=== PATIENT | female | born 1980 | race Caucasian/White ===

== ENCOUNTER 2018-09-06 20:15 | Emergency (ER) | payer OTHER ==
[~2018-09-06] VITALS: Ht 167.6 cm; Wt 117.9 kg
[2018-09-06] MEDS ORDERED: PRILOSEC OTC20 MG (20:24)
[2018-09-06] MEDS ORDERED: XARELTO20 MG (20:24)
[2018-09-06 21:09] LABS: ABSOLUTE BASOPHILS 0.1 thou/uL (0.0-0.2); ABSOLUTE LYMPHOCYTES 3.8 thou/uL (0.8-5.3); ABSOLUTE MONOCYTES 0.8 thou/uL (0.0-1.2); ABSOLUTE NEUTROPHILS 11.1 thou/uL (1.6-8.1); BASOPHILS 0.7 %; EOSINOPHILS 0.2 %; HEMATOCRIT 42.3 % (37.0-47.0); HEMOGLOBIN 13.9 gm/dL (12.0-15.0); LYMPHOCYTES 23.9 %; MCH 29.4 pg (26.0-34.0); MCHC 32.8 g/dL (28.0-37.0); MCV 89.7 fL (80.0-100.0); MPV 8.5 fl. (7.2-11.1); NUCLEATED RBCS 0 /100WBC; PLATELET COUNT* 342 thou/uL (150-400); POLYS 70.2 %; RBC 4.72 mil/uL (4.20-5.00); RDW-CV 14.5 % (10.5-14.5); WBC 15.8 thou/uL (4.0-11.0)
[2018-09-06 21:25] LABS: ANION GAP 6 mmol/L (7-16); BUN 12 mg/dL (7-18); CHLORIDE 100 mmol/L (98-107); CO2 32 mmol/L (21-32); CREATININE 0.9 mg/dL (0.6-1.3); GLUCOSE 132 mg/dL (70-99); POTASSIUM 3.4 mmol/L (3.5-5.1); SODIUM 138 mmol/L (136-145)
[2018-09-06 21:27] LABS: APTT 26.5 Seconds (25.0-31.3); PROTIME 10.2 Seconds (9.20-11.50)
[2018-09-06 21:36] LABS: ALBUMIN 3.8 g/dL (3.4-5.0); ALKALINE PHOSPHATASE 104 U/L (46-116); LIPASE 178 U/L (73-393); SGOT 9 U/L (15-37); SGPT 21 U/L (30-65); TOTAL BILIRUBIN 0.3 mg/dL (<0.1-1.0); TOTAL PROTEIN 8.2 g/dL (6.4-8.2); TROPONIN-I LEVEL <0.06 ng/mL (<0.06)
[2018-09-06 23:09] VITALS: BP 113/68
--- NOTE | 2018-09-07 14:31 | EKG ---
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 [place]: [place] : 1980 Requested By: Leandra Zheng Order Number: [id number] MD: Melvin Landis Measurements Intervals [place] Rate: 101 P: 42 [place]: 135 QRS: 25 QRSD: 103 T: -1 QT: 347 QTc: 450 Interpretive Statements Sinus tachycardia Borderline T abnormalities, inferior leads Baseline wander in lead(s) II,III,aVF No previous ECG available for comparison Electronically Signed On 09-07-2018 14:31:21 AIR TURNING MACHINE FEEDER by Melvin Landis [email or web address] <ELECTRONICALLY SIGNED> By: Melvin Landis MD, [facility] 09/07/18 1431 19 19 Melvin Landis MD, FACC /EPI
== END 2018-09-06 23:10 | disposition home or self-care (01) ==
LOC: M.ERS 20:15
PROVIDERS: Personal Emergency Response Attendant
DX: R07.89 Other chest pain (principal); Z88.8 Allergy status to other drugs, medicaments and biological substances; Z86.711 Personal history of pulmonary embolism

== ENCOUNTER 2019-10-22 00:03 | Emergency (ER) | payer OTHER ==
[~2019-10-22] VITALS: Ht 170.2 cm; Wt 113.4 kg
[~2019-10-22 00:03] MED LIST: PRILOSEC OTC20 MG; XARELTO20 MG
[2019-10-22] MEDS ORDERED: METFORMIN HCL500 M3 PO (00:17)
[2019-10-22 01:00] LABS: ABSOLUTE BASOPHILS 0.1 thou/uL (0.0-0.2); ABSOLUTE EOSINOPHILS 0.1 thou/uL (0.0-0.7); ABSOLUTE MONOCYTES 0.6 thou/uL (0.0-1.2); ABSOLUTE NEUTROPHILS 4.3 thou/uL (1.6-8.1); BASOPHILS 0.7 %; EOSINOPHILS 1.7 %; HEMATOCRIT 40.6 % (37.0-47.0); HEMOGLOBIN 13.7 gm/dL (12.0-15.0); LYMPHOCYTES 37.2 %; MCH 29.7 pg (26.0-34.0); MCHC 33.7 g/dL (28.0-37.0); MCV 88.2 fL (80.0-100.0); MONOCYTES 7.2 %; MPV 8.1 fl. (7.2-11.1); NUCLEATED RBCS 0 /100WBC; PLATELET COUNT* 298 thou/uL (150-400); POLYS 53.2 %; RDW-CV 14.1 % (10.5-14.5); WBC 8.1 thou/uL (4.0-11.0)
[2019-10-22 01:07] LABS: CALCIUM 9.7 mg/dL (8.5-10.1); CREATININE 0.9 mg/dL (0.6-1.3); INR 1.3; POTASSIUM 3.6 mmol/L (3.5-5.1)
[2019-10-22 01:12] LABS: ALBUMIN 3.8 g/dL (3.4-5.0); TOTAL BILIRUBIN 0.6 mg/dL (<0.1-1.0)
[2019-10-22] MEDS ORDERED: PROAIR HFA8.5 GM INH (02:46)
[2019-10-22 03:00] VITALS: BP 144/81
--- NOTE | 2019-10-22 12:58 | EKG ---
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 Associate: [place] : 1980 Requested By: Jordyn Angela Order Number: [id number] MD: Joselito Payton Measurements Intervals [place] Rate: 93 P: 30 [place]: 151 QRS: 36 QRSD: 102 T: 22 QT: 371 QTc: 462 Interpretive Statements Sinus rhythm Compared to ECG 09/06/2018 20:20:52 Sinus tachycardia no longer present T-wave abnormality no longer present Electronically Signed On 10-22-2019 12:58:21 SHEAR TENDER by Joselito Payton [email or web address] <ELECTRONICALLY SIGNED> By: Yun Payton MD, [facility] 10/22/19 1258 Yun Payton MD, [facility] /EPI
== END 2019-10-22 03:00 | disposition home or self-care (01) ==
LOC: M.ERS 00:03
PROVIDERS: Emergency Medicine
DX: R07.89 Other chest pain (principal); Z88.8 Allergy status to other drugs, medicaments and biological substances; Z98.890 Other specified postprocedural states

== ENCOUNTER 2020-06-30 22:03 | Emergency (ER) | payer OTHER ==
[~2020-06-30] VITALS: Ht 170.2 cm; Wt 111.1 kg
[~2020-06-30 22:03] MED LIST changes: +METFORMIN HCL500 M3 PO; +PROAIR HFA8.5 GM INH
[2020-06-30] MEDS ORDERED: PROTONIX40 M4 PO (22:12)
[2020-06-30] MEDS ORDERED: PROTONIX40 M2 PO (22:12)
[2020-06-30 22:57] LABS: ABSOLUTE BASOPHILS 0.1 thou/uL (0.0-0.2); ABSOLUTE EOSINOPHILS 0.2 thou/uL (0.0-0.7); ABSOLUTE LYMPHOCYTES 2.8 thou/uL (0.8-5.3); ABSOLUTE MONOCYTES 0.7 thou/uL (0.0-1.2); ABSOLUTE NEUTROPHILS 5.9 thou/uL (1.6-8.1); BASOPHILS 0.6 %; EOSINOPHILS 1.6 %; HEMATOCRIT 41.2 % (37.0-47.0); HEMOGLOBIN 14.1 gm/dL (12.0-15.0); LYMPHOCYTES 29.3 %; MCH 30.3 pg (26.0-34.0); MCHC 34.2 g/dL (28.0-37.0); MCV 88.7 fL (80.0-100.0); MONOCYTES 6.9 %; MPV 8.7 fl. (7.2-11.1); NUCLEATED RBCS 0 /100WBC; PLATELET COUNT* 309 thou/uL (150-400); POLYS 61.6 %; RBC 4.64 mil/uL (4.20-5.00); RDW-CV 13.7 % (10.5-14.5); WBC 9.7 thou/uL (4.0-11.0)
[2020-06-30 23:01] LABS: CALCIUM 8.1 mg/dL (8.5-10.1); POTASSIUM 3.4 mmol/L (3.5-5.1)
[2020-06-30 23:05] LABS: ALBUMIN 3.8 g/dL (3.4-5.0); TOTAL BILIRUBIN 0.5 mg/dL (<0.1-1.0); TOTAL PROTEIN 7.9 g/dL (6.4-8.2)
[2020-06-30 23:09] LABS: INR 1.2; PROTIME 12.7 Seconds (9.20-11.50)
[2020-07-01] MEDS ORDERED: CARAFATE 1 GM TA1 GM PO (02:41)
[2020-07-01 03:03] VITALS: BP 120/79
--- NOTE | 2020-07-01 14:01 | EKG ---
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 Analytics: [place] : 1980 Requested By: Leandra Zheng Order Number: [id number] MD: Melvin Landis Measurements Intervals [place] Rate: 124 P: 190 [place]: 156 QRS: 53 QRSD: 95 T: -40 QT: 297 QTc: 427 Interpretive Statements Sinus tachycardia probable left atrial enlargement Delayed R wave progression borderline repolarization abnormality Compared to ECG 10/22/2019 00:13:32 Sinus rhythm no longer present Electronically Signed On 07-01-2020 14:01:17 CDT by Melvin Landis [email or web address] <ELECTRONICALLY SIGNED> By: Melvin Landis MD, FACC 07/01/20 1401 06 06 Melvin Landis MD, FAC /EPI
== END 2020-07-01 03:05 | disposition home or self-care (01) ==
LOC: M.ERS 22:03
PROVIDERS: Personal Emergency Response Attendant
DX: K21.9 Gastro-esophageal reflux disease without esophagitis (principal); R07.89 Other chest pain; Z86.711 Personal history of pulmonary embolism; Z90.49 Acquired absence of other specified parts of digestive tract; Z88.8 Allergy status to other drugs, medicaments and biological substances

== ENCOUNTER 2020-09-30 18:08 | Emergency (ER) | payer OTHER ==
[~2020-09-30] VITALS: Ht 170.2 cm; Wt 112.0 kg
[~2020-09-30 18:08] MED LIST changes: +CARAFATE 1 GM TA1 GM PO; +PROTONIX40 M2 PO; +PROTONIX40 M4 PO
[2020-09-30 18:32] LABS: ABSOLUTE BASOPHILS 0.1 thou/uL (0.0-0.2); ABSOLUTE EOSINOPHILS 0.1 thou/uL (0.0-0.7); ABSOLUTE LYMPHOCYTES 2.2 thou/uL (0.8-5.3); ABSOLUTE MONOCYTES 0.5 thou/uL (0.0-1.2); ABSOLUTE NEUTROPHILS 6.1 thou/uL (1.6-8.1); BASOPHILS 1.1 %; EOSINOPHILS 0.8 %; HEMATOCRIT 42.1 % (37.0-47.0); HEMOGLOBIN 14.2 gm/dL (12.0-15.0); LYMPHOCYTES 24.1 %; MCH 29.6 pg (26.0-34.0); MCHC 33.7 g/dL (28.0-37.0); MPV 7.6 fl. (7.2-11.1); NUCLEATED RBCS 0 /100WBC; PLATELET COUNT* 331 thou/uL (150-400); RBC 4.79 mil/uL (4.20-5.00); RDW-CV 13.8 % (10.5-14.5)
[2020-09-30 18:39] LABS: CALCIUM 8.6 mg/dL (8.5-10.1); CREATININE 0.9 mg/dL (0.6-1.3); POTASSIUM 3.4 mmol/L (3.5-5.1)
[2020-09-30 18:43] LABS: ALBUMIN 3.9 g/dL (3.4-5.0); TOTAL BILIRUBIN 0.6 mg/dL (<0.1-1.0); TOTAL PROTEIN 8.4 g/dL (6.4-8.2)
[2020-09-30 20:23] LABS: URINE BILIRUBIN NEGATIVE (Negative); URINE BLOOD NEGATIVE (Negative); URINE CLARITY CLEAR; URINE COLOR YELLOW; URINE GLUCOSE-RANDOM NEGATIVE (Negative); URINE KETONES NEGATIVE (Negative); URINE LEUKOCYTES-REFLEX NEGATIVE (Negative); URINE NITRITE-REFLEX NEGATIVE (Negative); URINE PROTEIN NEGATIVE (Negative); URINE SPECIFIC GRAVITY 1.015 (1.005-1.030); URINE UROBILINOGEN 0.2 E.U./dl (0.2-1.0)
[2020-09-30 21:41] VITALS: BP 110/74
--- NOTE | 2020-10-01 09:00 | EKG ---
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: : 1980 Requested By: Eric Reyna Order Number: [id number] MD: Winston Hughes Measurements Intervals [place] Rate: 109 P: 42 [place]: 145 QRS: 11 QRSD: 98 T: -25 QT: 338 QTc: 456 Interpretive Statements Sinus tachycardia Borderline repolarization abnormality Compared to ECG 06/30/2020 22:07:36 Poor R-wave progression no longer present rate has slwoed Electronically Signed On 10-01-2020 9:00:47 FEDERAL AID COORDINATOR by Winston Hughes [email or web address] <ELECTRONICALLY SIGNED> By: Winston Hughes MD, [facility] 10/01/20 0900 11 11 Winston Hughes MD, [facility] /EPI
== END 2020-09-30 21:42 | disposition still patient (30) ==
LOC: M.ERS 18:08
PROVIDERS: Emergency Medicine; Physician Assistant
DX: R07.89 Other chest pain (principal); Z20.828 Contact with and (suspected) exposure to other viral communicable diseases; Z88.8 Allergy status to other drugs, medicaments and biological substances; Z90.49 Acquired absence of other specified parts of digestive tract; Z86.711 Personal history of pulmonary embolism

== ENCOUNTER 2021-11-14 14:49 | Emergency (ER) | payer BC ==
[~2021-11-14] VITALS: Ht 170.2 cm; Wt 121.6 kg
[2021-11-14] MEDS ORDERED: PROZAC10 M1 PO (15:09)
[2021-11-14] MEDS ORDERED: SPIRONOLACTONE50 MG PO (15:10)
--- NOTE | 2021-11-14 15:46 | EKG ---
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: : 1980 Requested By: Eric Reyna Order Number: [id number] MD: Raj Muniz Measurements Intervals [place] Rate: 103 P: 23 [place]: 140 QRS: 26 QRSD: 101 T: 8 QT: 345 QTc: 452 Interpretive Statements Sinus tachycardia Low voltage, precordial leads Minor intraventricular conduction delay Borderline T wave abnormalities Compared to ECG 09/30/2020 18:12:00 Low QRS voltage now present Nonspecific ST-T alterations are less prominent Electronically Signed On 11-14-2021 15:46:37 DERMATOLOGIST by Raj Muniz [email or web address] <ELECTRONICALLY SIGNED> By: Raj Muniz MD, [facility] 11/14/21 1546 1503 1503 Raj Muniz MD, [facility] /EPI
[2021-11-14 16:14] LABS: CALCIUM 8.8 mg/dL (8.5-10.1); CREATININE 0.9 mg/dL (0.6-1.3); POTASSIUM 3.7 mmol/L (3.5-5.1)
[2021-11-14 16:19] LABS: ALBUMIN 3.6 g/dL (3.4-5.0); TOTAL BILIRUBIN 0.3 mg/dL (<0.1-1.0)
[2021-11-14 16:49] LABS: ABSOLUTE EOSINOPHILS 0.1 thou/uL (0.0-0.7); ABSOLUTE LYMPHOCYTES 1.7 thou/uL (0.8-5.3); ABSOLUTE MONOCYTES 0.7 thou/uL (0.0-1.2); ABSOLUTE NEUTROPHILS 5.5 thou/uL (1.6-8.1); BASOPHILS 0.4 %; EOSINOPHILS 1.7 %; HEMATOCRIT 40.9 % (37.0-47.0); HEMOGLOBIN 13.5 gm/dL (12.0-15.0); LYMPHOCYTES 20.7 %; MCH 29.3 pg (26.0-34.0); MCV 88.9 fL (80.0-100.0); MONOCYTES 8.2 %; MPV 7.7 fl. (7.2-11.1); NUCLEATED RBCS 0 /100WBC; PLATELET COUNT* 280 thou/uL (150-400); RDW-CV 13.4 % (10.5-14.5)
[2021-11-14] MEDS ORDERED: AUGMENTIN 875-1 EACH PO (17:22)
[2021-11-14 18:04] VITALS: BP 120/76
== END 2021-11-14 18:04 | disposition home or self-care (01) ==
LOC: M.ERS 14:49
PROVIDERS: Physician Assistant
DX: J18.9 Pneumonia, unspecified organism (principal); Z20.822 Contact with and (suspected) exposure to COVID-19; Z86.711 Personal history of pulmonary embolism; Z90.49 Acquired absence of other specified parts of digestive tract; Z87.42 Personal history of other diseases of the female genital tract; Z98.890 Other specified postprocedural states; Z79.899 Other long term (current) drug therapy; Z88.8 Allergy status to other drugs, medicaments and biological substances